=== PATIENT | male | born 1990 | race African-American/Black ===

== ENCOUNTER 2016-12-10 18:10 | Emergency (ER) | payer MEDICAID ==
[~2016-12-10] VITALS: Ht 185.4 cm; Wt 89.5 kg
[2016-12-10 18:11] VITALS: BP 122/88
--- NOTE | 2016-12-10 20:07 | REP ---
Clinical: Pain. Technique: AP, lateral, bilateral oblique and sunrise views of the right knee. Findings: Lateral view suggests suprapatellar effusion. No acute fracture dislocation. Skeletal structures and joint spaces are otherwise intact and relatively normal for age. Impression: Cannot exclude suprapatellar effusion. No acute fracture dislocation. Signed by Darshan Lewis MD 12/10/2016 07:59 P
[2016-12-10] MEDS ORDERED: ACETAMINOPH W/CODEINE #3 TAB UD PO ONE (21:00)
[2016-12-10] MEDS ORDERED: IBUPROFEN 600 MG TAB PO ONE (21:00)
[2016-12-10] MEDS ORDERED: ACET30TAB PO (21:06)
[2016-12-10] MEDS ORDERED: NAPR500T PO (21:06)
== END 2016-12-10 21:13 | disposition home or self-care (01) ==
LOC: M ED 18:10
DX: S89.91XA Unspecified injury of right lower leg, initial encounter (principal); M25.461 Effusion, right knee; X58.XXXA Exposure to other specified factors, initial encounter; Y92.019 Unspecified place in single-family (private) house as the place of occurrence of the external cause; Y93.89 Activity, other specified; Y99.8 Other external cause status; F17.210 Nicotine dependence, cigarettes, uncomplicated

== ENCOUNTER → 2017-03-06 | Outpatient (CLI) | payer SELFPAY ==
[~2017-03-06] MED LIST: ACET30TAB PO; NAPR500T PO
== END ==
LOC: M OUTALCOH 12:08
PROVIDERS: ATTEND Psychiatry & Neurology Psychiatry
DX: F10.20 Alcohol dependence, uncomplicated (principal); F14.20 Cocaine dependence, uncomplicated

== ENCOUNTER 2017-03-15 11:01 | Outpatient (RCR) | payer SELFPAY | END 2017-03-31 | LOC: M OUTALCOH 11:01 | DX: F10.20 Alcohol dependence, uncomplicated (principal); F14.20 Cocaine dependence, uncomplicated; F17.200 Nicotine dependence, unspecified, uncomplicated ==